=== PATIENT | female | born 1975 | race Caucasian/White ===

== ENCOUNTER 2024-08-17 02:48 | Inpatient (IN) ==
[2024-08-17] MEDS: cefTRIAXone 2 GM in DEXTROSE 5% IN WATER 50 ML IV ONE (04:03)
[2024-08-17] MEDS: SODIUM CHLORIDE IV ONE (04:04)
[2024-08-17] MEDS: KETOROLAC 15 MG/ML VIAL IV ONE (04:04)
[2024-08-17] MEDS: ACETAMINOPHEN 1,000 MG/100 ML BAG IV ONE (04:04)
[2024-08-17] MEDS: ONDANSETRON 4 MG/2 ML VIAL ONE (04:05)
[2024-08-17] MEDS: LORazepam 2 MG/ML VIAL IV ONE (04:05)
[2024-08-17 04:19] LABS: Basophils # (Auto) 0.05 K/mcL (0.00-0.30); Basophils % (Auto) 0.3 % (0.0-2.0); Eosinophils # (Auto) 0.02 K/mcL (0.00-0.70); Eosinophils % (Auto) 0.1 % (0.0-7.0); Hematocrit 44.6 % (34.1-44.9); Hemoglobin 14.5 g/dL (11.2-15.7); Lymphocytes # (Auto) 2.29 K/mcL (1.50-4.80); Lymphocytes % (Auto) 13.6 % (15.5-49.0); Mean Cell Volume 95.9 fL (80.0-100.0); Mean Corpuscular HGB Conc 32.5 g/dL (31.0-36.0); Mean Platelet Volume 9.6 fL (8.8-12.5); Monocytes # (Auto) 1.96 K/mcL (0.10-0.90); Monocytes % (Auto) 11.7 % (1.0-12.0); Platelet Count 227 K/mcL (140-440); RBC 4.65 M/mcL (3.59-5.38); WBC 16.8 K/mcL (4.5-11.0)
[2024-08-17 04:27] LABS: ALT/SGPT 35 U/L (<40); AST/SGOT 37 U/L (<32); Albumin 3.9 gm/dL (3.2-5.2); Albumin/Globulin Ratio 1.3 (1.0-2.3); Alkaline Phosphatase 195 U/L (39-117); Bilirubin,Total 0.7 mg/dL (0.1-1.0); Blood Urea Nitrogen 6 mg/dL (6-20); Calcium 9.3 mg/dL (8.6-10.4); Carbon Dioxide 22 mmol/L (22-30); Chloride 97 mmol/L (96-108); Globulin 2.9 gm/dL (2.2-3.7); Glomerular Filtration Rate 86; Glucose 117 mg/dL (70-105); Potassium 3.9 mmol/L (3.3-5.1); Sodium 131 mmol/L (133-145)
[2024-08-17 04:37] LABS: Appearance,Urine CLOUDY (Clear); Bacteria,Urine FEW /hpf (0); Bilirubin,Urine Negative (Negative); Color,Urine YELLOW; Glucose,Urine (UA) Negative (Negative); Ketones,Urine Negative (Negative); Leukocyte Esterase,Urine 500 /uL (Negative); Mucus,Urine FEW /hpf; Nitrate,Urine Negative (Negative); Protein,Urine Negative (Negative); Specific Gravity,Urine 1.006 (1.000-1.035); Urine Blood >=1.0 mg/dL (Negative); Urine RBC 17 /hpf (0-3); Urine Squamous Epithelial Cell 4 /hpf (0-4); Urine Transitional Epi Cells 1 /hpf (0-2); Urine WBC > 182 /hpf (0-4); Urobilinogen,Urine Negative
[2024-08-17] MEDS ORDERED: ACETAMINOPHEN 650 MG/65 ML BAG IV PRN (11:49)
[2024-08-17] MEDS: ONDANSETRON 4 MG/2 ML VIAL IV ONE (12:40)
[2024-08-17] MEDS: KETOROLAC 15 MG/ML VIAL IV PRN (12:51)
[2024-08-17] MEDS ORDERED: PROPOFOL 200 MG/20 ML VIAL IV ONE (13:27)
[2024-08-17] MEDS ORDERED: fentaNYL 100 MCG/2 ML VIAL ONE (13:27)
[2024-08-17] MEDS ORDERED: KETAMINE 50 MG/ML ML ONE (13:28)
[2024-08-17] MEDS ORDERED: ONDANSETRON 4 MG/2 ML VIAL ONE (13:31)
[2024-08-17] MEDS ORDERED: DEXAMETHASONE 10 MG/ML VIAL ONE (13:31)
[2024-08-17] MEDS ORDERED: LIDOCAINE 2% PF 5 ML VIAL ONE (13:31)
[2024-08-17] MEDS ORDERED: GLYCOPYRROLATE 0.2 MG/ML VIAL IV ONE (13:31)
[2024-08-17] MEDS ORDERED: PHENYLephrine 1 MG/10 ML SYRINGE (ANEST) ONE (13:58)
[2024-08-17] MEDS: IOVERSOL 50 ML VIAL IJ ONE (14:00)
[2024-08-17] MEDS: LIDOCAINE 2% URO-JET 10 ML JEL.PF.APP UR ONE (14:04)
[2024-08-17] MEDS ORDERED: SENNOSIDES 1 TABLET PO PRN (15:00)
[2024-08-17] MEDS ORDERED: MAGNESIUM HYDROXIDE 30 ML ORAL.SUSP PO PRN (15:00)
[2024-08-17] MEDS: TAMSULOSIN 0.4 MG CAPSULE PO ONE (15:43)
[2024-08-17] MEDS: 0.9 % SODIUM CHLORIDE 1,000 ML IV SCH (15:43)
[2024-08-17] MEDS: 0.9 % SODIUM CHLORIDE 10 ML SYRINGE IV SCH (15:44)
[2024-08-17] MEDS ORDERED: NICOTINE POLACRILEX 2 MG GUM CHEW/PARK PRN (16:44)
[2024-08-17] MEDS: NICOTINE 7 MG PATCH TOPICAL SCH (16:59)
[2024-08-17] MEDS: MELATONIN 3 MG TABLET PO SCH (20:03)
[2024-08-17] MEDS: 0.9 % SODIUM CHLORIDE 1,000 ML IV ONE (20:29)
[2024-08-17] MEDS ORDERED: ZOLPIDEM 5 MG TABLET PO PRN (21:00)
[2024-08-18] MEDS: ONDANSETRON 4 MG/2 ML VIAL IV PRN (00:27)
[2024-08-18 06:31] LABS: Basophils # (Auto) 0.01 K/mcL (0.00-0.30); Basophils % (Auto) 0.1 % (0.0-2.0); Eosinophils # (Auto) 0 K/mcL (0.00-0.70); Eosinophils % (Auto) 0 % (0.0-7.0); Hematocrit 39.5 % (34.1-44.9); Hemoglobin 13.3 g/dL (11.2-15.7); Lymphocytes # (Auto) 1.68 K/mcL (1.50-4.80); Lymphocytes % (Auto) 9.5 % (15.5-49.0); Mean Cell Volume 92.5 fL (80.0-100.0); Mean Corpuscular HGB Conc 33.7 g/dL (31.0-36.0); Monocytes # (Auto) 1.22 K/mcL (0.10-0.90); Monocytes % (Auto) 6.9 % (1.0-12.0); Platelet Count 243 K/mcL (140-440); RBC 4.27 M/mcL (3.59-5.38); Red Cell Distribution Width 13.1 % (11.5-14.5); WBC 17.7 K/mcL (4.5-11.0)
[2024-08-18 07:00] LABS: ALT/SGPT 58 U/L (<40); AST/SGOT 51 U/L (<32); Albumin 3.5 gm/dL (3.2-5.2); Albumin/Globulin Ratio 1.3 (1.0-2.3); Alkaline Phosphatase 179 U/L (39-117); Bilirubin,Total 0.3 mg/dL (0.1-1.0); Blood Urea Nitrogen 7 mg/dL (6-20); Calcium 8.9 mg/dL (8.6-10.4); Carbon Dioxide 18 mmol/L (22-30); Chloride 110 mmol/L (96-108); Globulin 2.7 gm/dL (2.2-3.7); Glomerular Filtration Rate 107; Glucose 151 mg/dL (70-105); Potassium 4.3 mmol/L (3.3-5.1); Sodium 138 mmol/L (133-145)
[2024-08-18] MEDS: TAMSULOSIN 0.4 MG CAPSULE PO SCH (08:12)
[2024-08-18] MEDS: ENOXAPARIN 40 MG/0.4 ML SYRINGE SQ SCH (08:12)
[2024-08-18] MEDS: cefTRIAXone 2 GM in DEXTROSE 5% IN WATER 50 ML IV SCH (08:13)
[2024-08-18] MEDS ORDERED: cefTRIAXone 1 GM VIAL IV SCH (09:00)
[2024-08-18] MEDS: ACETAMINOPHEN 325 MG TABLET PO PRN (10:48)
[2024-08-18] MEDS: IBUPROFEN 800 MG TABLET PO PRN (20:05)
[2024-08-19 06:39] LABS: Basophils # (Auto) 0.05 K/mcL (0.00-0.30); Basophils % (Auto) 0.4 % (0.0-2.0); Eosinophils # (Auto) 0.04 K/mcL (0.00-0.70); Eosinophils % (Auto) 0.3 % (0.0-7.0); Hematocrit 38.1 % (34.1-44.9); Hemoglobin 12.6 g/dL (11.2-15.7); Lymphocytes % (Auto) 30.5 % (15.5-49.0); Mean Cell Volume 93.4 fL (80.0-100.0); Mean Corpuscular HGB Conc 33.1 g/dL (31.0-36.0); Mean Platelet Volume 10.2 fL (8.8-12.5); Monocytes # (Auto) 1.05 K/mcL (0.10-0.90); Monocytes % (Auto) 8.6 % (1.0-12.0); Neutrophils % (Auto) 59.6 % (38.0-78.0); Platelet Count 258 K/mcL (140-440); RBC 4.08 M/mcL (3.59-5.38); Red Cell Distribution Width 13.3 % (11.5-14.5); WBC 12.2 K/mcL (4.5-11.0)
[2024-08-19 07:13] LABS: C-Reactive Protein 6.83 mg/dL (0.03-0.80)
[2024-08-19 07:17] VITALS: TEMP 97.9; O2SAT 97
[2024-08-19 07:35] LABS: ALT/SGPT 97 U/L (<40); AST/SGOT 77 U/L (<32); Albumin 3.5 gm/dL (3.2-5.2); Albumin/Globulin Ratio 1.4 (1.0-2.3); Alkaline Phosphatase 181 U/L (39-117); Bilirubin,Total < 0.2 mg/dL (0.1-1.0); Blood Urea Nitrogen 9 mg/dL (6-20); Calcium 8.5 mg/dL (8.6-10.4); Carbon Dioxide 20 mmol/L (22-30); Chloride 111 mmol/L (96-108); Globulin 2.5 gm/dL (2.2-3.7); Glomerular Filtration Rate 102; Glucose 111 mg/dL (70-105); Potassium 3.7 mmol/L (3.3-5.1); Sodium 143 mmol/L (133-145)
[2024-08-19] MEDS: SULFAMETHOXAZOLE/TRIMETHOPRIM 1 TABLET PO SCH (09:14)
== END 2024-08-19 10:39 | disposition home or self-care (01) | DRG 872 ==
LOC: ED 02:48 → SUR 13:00 → MEDSUR 14:46
PROVIDERS: ADMIT Urology; ATTEND Student in an Organized Health Care Education/Training Program